=== PATIENT | male | born 1940 | race African-American/Black ===

== ENCOUNTER → 2016-09-28 | Outpatient (CLI) | payer MEDICARE ==
--- NOTE | 2016-09-28 12:47 | PCVCIMAG ---
APPROVED REPORT Exam: Stress Echocardiogram Indication: Chest pain Patient Location: Echo lab Stress Nurse: Jojo Real RN Status: routine Ht: 5 ft 9 in HR: 83 bpm BP: 122/70 mmHg Rhythm: NSR Medical History Medical History: esophagitis Cardiac Risk Factors: FHX of CAD Previous Cardiac Procedures: none Pretest Chest Pain Characteristics: No chest pain Exercise History: Physically active Procedure The patient underwent an Exercise Stress Test using the Gage Protocol. Blood pressure, heart rate, and EKG were monitored. An Echocardiogram was performed by lock technician in four stages in quad fashion. At peak stress, four selected images were obtained and placed side by side with resting images for comparison. Stress Test Details Stress Test: Exercise stress testing was performed using a Gage protocol. HR Resting HR: 83 bpmMax Heart Rate (APMHR): 146 bpm Max HR Achieved: 157 bpmTarget HR (85% APMHR): 124 bpm % of APMHR: 107 Recovery HR: 100 bpm HR response to stress: Normal HR response to stress BP Resting BP: 122/70 mmHg Max BP: 152/70 mmHg Recovery BP: 130/70 mmHg ECG Resting ECG: Sinus Rhythm Stress ECG: Sinus Rhythm ST Change: Non-ischemic Maximum ST Deviation: 0.25 mm Arrhythmia: occasional PVC,PAC Recovery ECG: Sinus Rhythm Recovery ST Change: Non-ischemic Recovery ST Deviation: 0.5 mm Recovery Arrhythmia: None Clinical Reason for Termination: Maximal effort Stress Symptoms: none Exercise duration: 10 min 51 sec Highest Stage Achieved: Stage 4: 4.2 mph at 16% grade. Exercise capacity: 13.4 METs Overall Exercise Capacity for Age: Good Scale: Active Angina Score: None Stress ECG Conclusion The patient exercised according to the GAGE protocol for 10:51 mins, achieving a work level of Max. METS: 13.4 . The resting heart rate of 83 bpm ellie to a maximal heart rate of 157 bpm. This value represents 107 % of the maximal, age-predicted heart rate. The resting blood pressure of 122/70 mmHg, ellie to a maximum blood pressure of 152/70 mmHg. The exercise test was stopped due to fatigue. Anders Treadmill Score is 8.8 which is Low risk. Pre-Stress Echo The resting Echocardiogram showed normal left ventricular contractility with an estimated Ejection Fraction of about 55-60%. Normal wall motion in all segments on baseline images. Post-Stress Echo The stress Echocardiogram showed normalnormal left ventricular contractility with an estimated Ejection Fraction of about 65-70%. Normal augmentation of wall motion in all segments on post stress images. Clinical No clinical or ECG evidence for ischemia. Conclusion Clinical Response: Non-ischemic Exercise Capacity: Superior Stress ECG Response: Non-ischemic Stress Echo Images: Non-ischemic No clinical, EKG or echocardiographic evidence for ischemia. No echocardiographic evidence for exercise induced ischemia. Normal stress echocardiogram with maximal exercise stress. <Conclusion> No clinical, EKG or echocardiographic evidence for ischemia. No echocardiographic evidence for exercise induced ischemia. Normal stress echocardiogram with maximal exercise stress.
== END | disposition home or self-care (01) ==
LOC: PCVCIMAG 11:17
PROVIDERS: ATTEND Internal Medicine Cardiovascular Disease
DX: I49.3 Ventricular premature depolarization (principal); K20.9 Esophagitis, unspecified; Z82.49 Family history of ischemic heart disease and other diseases of the circulatory system
CPT/HCPCS: 93325; 93351